=== PATIENT | female | born 1950 | race Caucasian/White ===

== ENCOUNTER 2018-02-10 13:19 | Outpatient (CLI) | payer MEDICARE, OTHER | END 2018-02-10 13:20 | disposition home or self-care (01) | LOC: BICULT 13:19 | PROVIDERS: ATTEND Family Medicine | DX: Z12.31 Encounter for screening mammogram for malignant neoplasm of breast (principal); R09.89 Other specified symptoms and signs involving the circulatory and respiratory systems; I65.23 Occlusion and stenosis of bilateral carotid arteries | CPT/HCPCS: 77063; 77067; 93880 ==

== ENCOUNTER 2019-03-13 14:30 | Outpatient (CLI) | payer MEDICARE ==
--- NOTE | 2019-03-13 15:33 | MMO ---
Bilateral MAMMO Bilat Screen [facility]. CLINICAL HISTORY: Patient is 68 years old and is seen for screening. The patient has no family history of breast cancer. The patient has no personal history of cancer. VIEWS: The views performed were: bilateral craniocaudal; bilateral craniocaudal with tomosynthesis; and bilateral mediolateral oblique with tomosynthesis. FILMS COMPARED: The present examination has been compared to prior imaging studies performed at [facility] on 09/15/2016, 01/25/2017 and 02/10/2018, and at [facility] on 11/13/2010. MAMMOGRAM FINDINGS: There are scattered fibroglandular densities. Benign calcifications are noted bilaterally. There are no suspicious masses, suspicious calcifications, or new areas of architectural distortion. IMPRESSION: THERE IS NO MAMMOGRAPHIC EVIDENCE OF MALIGNANCY. A ROUTINE FOLLOW-UP MAMMOGRAM IN 1 YEAR IS RECOMMENDED. THE RESULTS OF THIS EXAM WERE SENT TO THE PATIENT. ACR BI-RADS Category 2 - Benign finding MAMMOGRAPHY NOTE: 1. A negative mammogram report should not delay a biopsy if a dominant of clinically suspicious mass is present. 2. Approximately 10% to 15% of breast cancers are not detected by mammography. 3. Adenosis and dense breasts may obscure an underlying neoplasm. Reported by: Joie CHINCHILLA Electonically Signed: [id number]
--- NOTE | 2019-03-13 16:34 | BD ---
DEXA BONE MINERAL DENSITOMETRY STUDY: HISTORY: Age-related osteoporosis without current pathological fracture. FINDINGS: LUMBAR SPINE BMD (g/cm2) T-SCORE Z-SCORE L1 1.06 0.6 2.3 L2 0.983 -0.4 1.4 L3 1.119 0.3 2.3 L4 1.015 -0.4 1.6 L1-L4 1.044 0 1.8 RIGHT FEMORAL NECK 0.612 -2.1 -0.5 TOTAL FEMUR 0.928 -0.1 1.2 Bone mineral density from L1 to L4 on prior examination, obtained at [facility] [place] on 0 09/15/2016, was 1.127 g/cm2, corresponding to a young adult T-score of 0.7, with the bone mineral dens ity of the left femoral neck measuring 0.663 g/cm2, corresponding to a young adult T-score of -2.7. IMPRESSION: 1. Moderate osteopenia of the right femoral neck. 2. Normal bone mineralization of the lumbar spine. POS: BASIL
== END 2019-03-13 14:31 | disposition home or self-care (01) ==
LOC: BICMAMMO 14:30
PROVIDERS: ATTEND Family Medicine
DX: Z12.31 Encounter for screening mammogram for malignant neoplasm of breast (principal); M85.851 Other specified disorders of bone density and structure, right thigh; Z78.0 Asymptomatic menopausal state
CPT/HCPCS: 77063; 77067; 77080

== ENCOUNTER 2019-10-12 13:26 | Outpatient (CLI) | payer MEDICARE ==
[2019-10-12] MEDS ORDERED: Iopamidol-370 76% 500 ML 1 ML ONE (13:43)
--- NOTE | 2019-10-12 14:40 | CT ---
EXAM: CT Chest Abd Pelvis with and without IV contrast PROVIDED CLINICAL HISTORY: Malignant neoplasm of myometrium COMPARISON: None FINDINGS: Vascular calcification including coronary calcium is demonstrated. The heart, pericardium and great v essels demonstrate an otherwise unremarkable CT appearance. There is no evidence for thoracic lymph node enlargement. The airway appears patent and of normal caliber. No pleural fluid, pleural thickening or pneumothorax apparent. There is a sub-4 mm average axial dimension noncalcified left upper lobe pulmonary nodule (image 15 s eries 4). There is a sub-4 mm average axial dimension noncalcified right lower lobe pulmonary nodule (image 29 series 4). No additional nodules are evident. The liver, spleen, kidneys and adrenal glands appear unremarkable. There is fatty replacement of much of the pancreas. There is a small fat-containing umbilical hernia. There is an enlarged and heterogeneous appearance to the uterus compatible with the provided clinical history of uterine malignancy. No bowel dilatation, inflammatory fat stranding, free fluid or lymph node enlargement apparent. Vascular calcifications are noted. The osseous structures demonstrate no concerning lytic or blastic lesions. IMPRESSION: 1. Nonspecific sub-4 mm left upper and right lower lobe noncalcified pulmonary nodules. 2. Uterine findings compatible with the provided clinical history. 3. Chronic findings as above.
== END 2019-10-12 13:27 | disposition home or self-care (01) ==
LOC: BICCT 13:26
PROVIDERS: ATTEND Obstetrics & Gynecology Gynecologic Oncology
DX: C54.2 Malignant neoplasm of myometrium (principal); R91.8 Other nonspecific abnormal finding of lung field; I70.90 Unspecified atherosclerosis; K42.9 Umbilical hernia without obstruction or gangrene
CPT/HCPCS: 71250; 71260; 74177; 82565; Q9967

== ENCOUNTER 2020-08-02 15:16 | Emergency (ER) | payer MEDICARE ==
[2020-08-02] MEDS ORDERED: Ketorolac Tromethamine 30 MG/ML VIAL ONE (15:48)
--- NOTE | 2020-08-02 16:15 | RAD ---
XR Shoulder Rt 3 View STANDARD HISTORY: Fall, right shoulder pain FINDINGS: There is a comminuted fracture involving the right proximal humerus with mild displacement.
[2020-08-02] MEDS ORDERED: HYDROcodone/Acetaminophen 5/325 mg Tablet ONE (16:18)
== END 2020-08-02 16:47 | disposition home or self-care (01) ==
LOC: ERS 15:16
DX: S42.201A Unspecified fracture of upper end of right humerus, initial encounter for closed fracture (principal); I10 Essential (primary) hypertension; E78.5 Hyperlipidemia, unspecified; E78.00 Pure hypercholesterolemia, unspecified; W19.XXXA Unspecified fall, initial encounter; Y92.009 Unspecified place in unspecified non-institutional (private) residence as the place of occurrence of the external cause; Z79.82 Long term (current) use of aspirin; Z79.899 Other long term (current) drug therapy
CPT/HCPCS: 94760; 96372; J1885

== ENCOUNTER 2020-09-03 10:06 | Day surgery (SDC) | payer MEDICARE ==
[2020-09-03] MEDS ORDERED: Acetaminophen 325 MG TAB PO PRN (10:20)
[2020-09-03] MEDS ORDERED: Sodium Chloride 0.9% 20 ML ONE (11:51)
[2020-09-03 15:07] VITALS: TEMP 98
[2020-09-03 16:20] VITALS: BP 110/57
== END 2020-09-03 16:33 | disposition home or self-care (01) ==
LOC: ONC/OP 10:06
PROVIDERS: ATTEND Family Medicine
PROC: 30233N1 Transfusion of Nonautologous Red Blood Cells into Peripheral Vein, Percutaneous Approach (ICD-10-PCS; principal; 2020-09-03)
DX: D64.9 Anemia, unspecified (principal); Z88.0 Allergy status to penicillin; Z91.048 Other nonmedicinal substance allergy status
CPT/HCPCS: 36430; 86850; 86900; 86901; P9016

== ENCOUNTER 2020-09-05 15:32 | Outpatient (CLI) | payer MEDICARE ==
--- NOTE | 2020-09-05 16:08 | RAD ---
TWO VIEWS OF THE CHEST: 09/05/20 COMPARISON: 05/07/16, CT of the chest 10/12/19. HISTORY: Shortness of breath. FINDINGS: Two views of the chest shows a normal sized cardiomediastinal silhouette. There is a large mass in th e left apex measuring approximately 13.2 cm in greatest dimension. No destruction of the adjacent rib s is seen. No pleural effusion is seen. No right sided pulmonary masses are seen. Degenerative changes are seen in the spine. IMPRESSION: Left upper lobe pulmonary mass. A CT of the chest with contrast is recommended for further evaluation . POS: AH
== END 2020-09-05 15:33 | disposition home or self-care (01) ==
LOC: BICRAD 15:32
PROVIDERS: ATTEND Family Medicine
DX: R06.09 Other forms of dyspnea (principal); R91.8 Other nonspecific abnormal finding of lung field
CPT/HCPCS: 71046

== ENCOUNTER 2020-09-13 11:14 | Outpatient (CLI) | payer MEDICARE ==
[2020-09-13 22:15] LABS: SARS-CoV-2 PCR by NAA Not Detected (NotDetected)
== END 2020-09-13 11:15 | disposition home or self-care (01) ==
LOC: LABBT 11:14
PROVIDERS: ATTEND Family Medicine
DX: Z20.822 Contact with and (suspected) exposure to COVID-19 (principal)
CPT/HCPCS: U0003; U0005; 87635

== ENCOUNTER 2020-09-16 11:36 | Inpatient (IN) | payer MEDICARE ==
--- NOTE | 2020-09-16 12:28 | RAD ---
EXAM: Single view of the chest HISTORY: Lung mass COMPARISON: CT chest 09/10/2020 FINDINGS: Single view of the chest shows a normal sized cardiomediastinal silhouette. There is comple te opacification of the left thorax. This represents a combination of a large left upper lobe mass and atelectasis of the left lung. A pleural effusion may also be present. No significant midline shif t is seen. No acute osseous abnormality. IMPRESSION: Complete opacification of the left thorax as above.
[2020-09-16 12:39] LABS: Hemoglobin 8.1 g/dL (12.0-16.0); Mean Corpuscular HGB CONC 31.1 g/dL (32.0-36.0); Mean Corpuscular Hemoglobin 25.7 pg (27.0-31.0); Mean Corpuscular Volume 82.6 fL (78.0-98.0); Mean Platelet Volume 7.1 fL (7.4-10.4); Platelet Count 658 thou/uL (130-400); Red Blood Cell (RBC) Count 3.15 mill/uL (4.20-5.40); White Blood Cell (WBC) Count 27.5 thou/uL (4.8-10.8)
[2020-09-16 12:42] LABS: ALT (SGPT) Less than 7 U/L (8-55); AST (SGOT) 15 U/L (5-34); Albumin 2.9 g/dL (3.4-4.8); Alkaline Phosphatase 137 U/L (40-110); Anion Gap 18 mmol/L (10-20); BUN (Urea Nitrogen) 16 mg/dL (9.8-20.1); Bilirubin, Total 0.9 mg/dL (0.2-1.2); Calc. Creatinine Clearance 0 mL/min (70-130); Calcium 9.3 mg/dL (7.8-10.44); Carbon Dioxide 23 mmol/L (23-31); Chloride 93 mmol/L (98-107); Globulin 4.3 g/dL (2.4-3.5); Glucose 136 mg/dL (80-115); Potassium 4.2 mmol/L (3.5-5.1); Protein, Total 7.2 g/dL (5.8-8.1); Sodium 130 mmol/L (136-145)
[2020-09-16 12:44] LABS: Band 1 % (5-11); Hypochromia SLIGHT = 6-15 cells (100X) (0-5/hpf); Lymphocytes 2 % (21-51); MDiff Complete? YES; Monocytes 4 % (0-10); Neutrophil 92 % (42-75); Platelet Morphology Comment Appears Increased; Polychromasia SLIGHT = 2-3 cells (100X) (0-2/hpf); Reactive Lymphocytes 1 % (0-10)
--- NOTE | 2020-09-16 14:15 | PDOC.HHP ---
Hospitalist HPI shortness of breath History of Present Illness: This is a 70 year old female with past medical history of hypertension, anemia, humerus fracture, who presented to the ER with worsening shortness of breath. The patient states she started experiencing shortness of breath walking to the bathroom approximately one month ago. She fractured her right shoulder in July 2020 after tripping on a rug and had a CT scan of her chest on 09/10 for preoperative workup and incidentally found out she had a 14.5 x 9.3 cm mass. She was scheduled for a CT guided biopsy on 07/18, however this past weekend experienced progressively worsening shortness of breath. She went to see her PCP who sent her to the hospital for further workup. She denies fevers, chills, but has an occasional dry cough. She has intermittent chest pain when she is sitting that lasts a few seconds and resolves spontaneously. She has never smoked. The patient reports decreased appetite and has lost 5 pounds in the past two weeks unintentionally. She reports that she had increasing leg swelling after stopping her lisinopril-HCTZ and switching to metoprolol per cardiology recommendations, but her switched her back to lisinopril-HCTZ and her leg swelling has since improved. She was also discovered to be anemic during preoperative workup and had a recent blood transfusion for a hemoglobin of 7 on 09/02. She was scheduled for an EGD and colonoscopy and this was cancelled when she was found to have the lung mass. The patient is extremely frustrated with the all the bad news and barriers to her getting her shoulder repaired. ED Course: When the patient presented to the ER she had normal vitals and oxygen sat of 98% on 2L of oxygen. Chest Xray showed large left upper lobe mass and atelectasis of the left lung. There was complete opacification of the left thorax. Allergies/Adverse Reactions: Allergy/AdvReac Type Severity Reaction Status Date / Time adhesive Allergy Verified 11/06/19 12:29 Penicillins Allergy Verified 11/06/19 12:29 Home Medications: Medication Instructions Recorded Confirmed Type Lisinopril/Hydrochlorothiazide 2 tab PO DAILY 10/02/16 10/02/16 History [Lisinopril-Hctz 20-12.5 mg Tab] Multivitamin [Multivitamins] 1 cap PO DAILY 10/02/16 10/02/16 History Simvastatin 1 tab PO HS 10/02/16 10/02/16 History Past History: PMHx: Hypertension Sinus tachycardia PSHx: hysterectomy for uterine cancer FHx: pancreatic cancer in the brother. Uterine cancer in the mother Social:The patient has never smoked or drank Hospitalist HPI ROS Constitutional: denies: fever, chills Eyes: denies: pain, vision change ENT: denies: ear pain, ear discharge Gastrointestinal: reports: constipation. denies: nausea, vomiting, abdominal pain, diarrhea Genitourinary: denies: dysuria, frequency, incontinence Musculoskeletal: reports: shoulder pain (right shoulder pain) Skin: denies: rash, lesions Neurological: denies: weakness, numbness Hospitalist Exam General Appearance: NAD, awake alert Eye: PERRL, anicteric sclera ENT: normocephalic atraumatic, no oropharyngeal lesions Neck: supple, symmetric, no JVD Heart: RRR, no murmur, no gallops, no rubs Respiratory: no wheezes, no rales, no ronchi Respiratory - other findings: diminished breath sounds left mid lung to lower lobe Gastrointestinal: soft, non-tender, non-distended, normal bowel sounds Extremities: no cyanosis, no clubbing, 2+ LE edema Skin: normal turgor, no lesions, no rashes Neurological: cranial nerve grossly intact, normal sensation to touch, no weakness Musculoskeletal: normal tone, normal strength, no muscle wasting Psychiatric: normal affect, normal behavior, A&O x 3, oriented to person Hospitalist Results Result Diagrams: 09/16/20 12:00 09/16/20 12:00 Lab results: Laboratory Last Values WBC 27.5 thou/uL (4.8-10.8) H 09/16/20 12:00 RBC 3.15 mill/uL (4.20-5.40) L 09/16/20 12:00 Hgb 8.1 g/dL (12.0-16.0) L 09/16/20 12:00 Hct 26.0 % (36.0-47.0) L 09/16/20 12:00 MCV 82.6 fL (78.0-98.0) 09/16/20 12:00 MCH 25.7 pg (27.0-31.0) L 09/16/20 12:00 MCHC 31.1 g/dL (32.0-36.0) L 09/16/20 12:00 RDW 18.0 % (11.5-14.5) H 09/16/20 12:00 Plt Count 658 thou/uL (130-400) H 09/16/20 12:00 MPV 7.1 fL (7.4-10.4) L 09/16/20 12:00 Neutrophils % (Manual) 92 % (42-75) H 09/16/20 12:00 Band Neuts % (Manual) 1 % (5-11) L 09/16/20 12:00 Lymphocytes % (Manual) 2 % (21-51) L 09/16/20 12:00 Reactive Lymphs % 1 % (0-10) 09/16/20 12:00 Monocytes % (Manual) 4 % (0-10) 09/16/20 12:00 Lymphocytes # Not Reportable 09/16/20 12:00 Hypochromia SLIGHT = 6-15 cells (100X) (0-5/hpf) 09/16/20 12:00 Plt Morphology Comment Appears Increased H 09/16/20 12:00 Polychromasia SLIGHT = 2-3 cells (100X) (0-2/hpf) 09/16/20 12:00 Sodium 130 mmol/L (136-145) L 09/16/20 12:00 Potassium 4.2 mmol/L (3.5-5.1) 09/16/20 12:00 Chloride 93 mmol/L (98-107) L 09/16/20 12:00 Carbon Dioxide 23 mmol/L (23-31) 09/16/20 12:00 Anion Gap 18 mmol/L (10-20) 09/16/20 12:00 BUN 16 mg/dL (9.8-20.1) 09/16/20 12:00 Creatinine 0.81 mg/dL (0.6-1.1) 09/16/20 12:00 Estimated GFR (MDRD) 70 09/16/20 12:00 Glucose 136 mg/dL (80-115) H 09/16/20 12:00 Calcium 9.3 mg/dL (7.8-10.44) 09/16/20 12:00 Total Bilirubin 0.9 mg/dL (0.2-1.2) 09/16/20 12:00 AST 15 U/L (5-34) 09/16/20 12:00 ALT Less than 7 U/L (8-55) L 09/16/20 12:00 Alkaline Phosphatase 137 U/L (40-110) H 09/16/20 12:00 Troponin I Less than 0.010 ng/mL (< 0.028) 09/16/20 12:00 B-Natriuretic Peptide 29.3 pg/mL (0-100) 09/16/20 12:00 Serum Total Protein 7.2 g/dL (5.8-8.1) 09/16/20 12:00 Albumin 2.9 g/dL (3.4-4.8) L 09/16/20 12:00 Globulin 4.3 g/dL (2.4-3.5) H 09/16/20 12:00 Albumin/Globulin Ratio 0.7 g/dL (1.2-2.2) L 09/16/20 12:00 Hospitalist H&P A/P Plan: Chest Xray: complete opacification of the left thorax Chest CT : large pleural based mass involving left hemithorax, worrisome for malignant lesion. Solid nodule in middle lobe. This is a 70 year old female with past medical history of hypertension, sinus tachycardia, who presented to the ER with progressively worsening shortness of breath. She was recently discovered to have a large left lung mass. CXR shows complete opacification of the hemithorax. #Acute hypoxic respiratory failure secondary to large left lung mass with complete opacification of left lung #Possible left pleural effusion - chest X ray shows complete opacification of the left thorax . CT chest 5 days ago showed large pleural based mass. - discussed with pulmonary, will repeat CT guided biopsy with bacterial, fungal and AFB cultures - WBC of 27, hold antibiotics until after biopsy per pulmonary Anemia - Hb 8, will hold any blood thinners for now. Will check ferritin level. May eventually need GI workup as an outpatient Hypertension - on lisinopril-HCTZ as an outpatient Hyperlipidemia - continue simvastatin
[2020-09-16] MEDS ORDERED: Furosemide 20 MG/2 ML VIAL SLOW IVP SCH (15:00)
[2020-09-16] MEDS ORDERED: cefTRIAXone Sodium 1,000 MG in Syringe 0 ML IVPB SCH (15:00)
[2020-09-16] MEDS ORDERED: Azithromycin 500 MG in Sodium Chloride 0.9% 250 ML 250 ML IVPB SCH (15:00)
--- NOTE | 2020-09-16 15:21 | PDOC.EVN ---
Event Note - Event Note Event Note: Discussed with radiology, originally planned for CT guided biopsy on Wednesday. Radiology will try to see if they can do it tomorrow
--- NOTE | 2020-09-16 15:58 | CT ---
Exam: Chest CT without contrast COMPARISON: 09/10/2020. FINDINGS: Redemonstration of a heterogeneous mass occupying the majority of the left lung. There is increased c ollapse and decreased aeration of the lingula and left lower lobe. Interval development of a small left-sided pleural effusion. Stable appearance of the mediastinum. Redemonstration of a nodule in the right upper lobe. No changes in the subdiaphragmatic structures or osseous structures. IMPRESSION: 1. Decreased aeration of the left lung. There is left lower lobe consolidation which may represent pa ssive atelectasis secondary to a left pleural effusion. 2. Redemonstration of a bilobed large heterogeneous mass in the left upper lobe. Transcribed Date/Time: 09/16/2020 4:03 PM
[2020-09-16 18:05] VITALS: BMI 51.5
[2020-09-17 04:16] LABS: Anion Gap 17 mmol/L (10-20); BUN (Urea Nitrogen) 17 mg/dL (9.8-20.1); Calc. Creatinine Clearance 126 mL/min (70-130); Calcium 9.2 mg/dL (7.8-10.44); Carbon Dioxide 24 mmol/L (23-31); Chloride 93 mmol/L (98-107); Glucose 129 mg/dL (80-115); Potassium 3.8 mmol/L (3.5-5.1); Sodium 130 mmol/L (136-145)
[2020-09-17 04:49] LABS: Band 5 % (5-11); Hemoglobin 7.5 g/dL (12.0-16.0); MDiff Complete? YES; Mean Corpuscular HGB CONC 30.6 g/dL (32.0-36.0); Mean Corpuscular Hemoglobin 25.2 pg (27.0-31.0); Mean Corpuscular Volume 82.2 fL (78.0-98.0); Mean Platelet Volume 7.4 fL (7.4-10.4); Monocytes 4 % (0-10); Neutrophil 91 % (42-75); Platelet Count 569 thou/uL (130-400); Platelet Morphology Comment Appears Increased; RBC Distribution Width 18.4 % (11.5-14.5); Red Blood Cell (RBC) Count 2.98 mill/uL (4.20-5.40); Vacuoles SLIGHT; White Blood Cell (WBC) Count 24.8 thou/uL (4.8-10.8)
--- NOTE | 2020-09-17 08:21 | PRG ---
DATE OF SERVICE: 09/17/2020 Ms. Crespo is afebrile. Heart rate is 115, respiratory rates in the 20s, oximetry is 98% on 2 L, and blood pressure 108/56. I talked special procedures. She is on the schedule, reminded them to please get cultures in addition to specimens for pathology. We will continue to follow. After procedure, she could start on broad-spectrum antimicrobial therapy, avoiding a penicillin since she has an allergy to this. Job ID: [id number]
[2020-09-17] MEDS ORDERED: Midazolam HCl 2 mg/2 ml Vial ONE (08:28)
[2020-09-17] MEDS ORDERED: Sodium Bicarbonate 2.5 MEQ/5 ML VIAL ONE (08:28)
[2020-09-17] MEDS ORDERED: Fentanyl 100 MCG/2 ML VIAL ONE (08:28)
--- NOTE | 2020-09-17 11:49 | CT ---
Exam: CT-guided left lung biopsy HISTORY: Left lung mass. COMPARISON: None. FINDINGS: Successful CT-guided biopsy of a left lung mass. Total of three 18-gauge core biopsy sample s were obtained. Patient tolerated the procedure well. No immediate or postprocedure complications. Postprocedure CT demonstrated expected postbiopsy air in the left lung mass. No evidence of a pneumot horax. There is evidence of left-sided pleural effusion. TECHNIQUE: Consent obtained to perform a CT-guided biopsy of the left upper lobe. Patient was placed supine position on the CT gantry. Lesion was identified. Skin was prepped and draped in a sterile fashion. 1% lidocaine, buffered with sodium bicarbonate was used for local anesthesia. Under CT ashley nce, a 17-gauge metallic trocar was advanced into the mass. Through this trocar, total of three 18-gauge core biopsy samples were obtained. Lesional tissue is present. Patient tolerated the procedu re well. No immediate or postprocedure complications. IMPRESSION: Successful CT-guided left lung biopsy. IMPRESSION: Successful CT-guided biopsy. Final pathologic diagnosis pending. Transcribed Date/Time: 09/17/2020 1:45 PM
--- NOTE | 2020-09-17 11:52 | RAD ---
Exam: Upright inspiratory effort. Chest radiograph HISTORY: Status post left lung biopsy FINDINGS: Opacification of the left hemithorax is once again demonstrated. No pneumothorax. Subacute right dejan ral fracture is identified IMPRESSION: No pneumothorax
--- NOTE | 2020-09-17 11:53 | RAD ---
Exam: Portable upright inspiratory and expiratory chest radiograph HISTORY: Status post lung biopsy COMPARISON: 09/17/2020 at 9:57 AM FINDINGS: Portable upright inspiratory and expiratory chest radiographs do not identify any pneumotho rax. No significant change IMPRESSION: no pneumothorax
--- NOTE | 2020-09-17 12:33 | RAD ---
Exam: Upright inspiratory and expiratory chest radiograph HISTORY: Status post left lung biopsy FINDINGS: No evidence of pneumothorax. No significant interval change IMPRESSION: No pneumothorax
[2020-09-17] MEDS ORDERED: TYLENOL PO PRN (14:22)
[2020-09-17] MEDS ORDERED: COD PO PRN (14:22)
[2020-09-17] MEDS: Acetaminophen/Codeine 30-300mg Tablet PO PRN (16:13)
[2020-09-17] MEDS: Ondansetron PF 4 MG/2 ML Vial IVP PRN (16:14)
--- NOTE | 2020-09-17 18:26 | PDOC.HOSPP ---
- Subjective Encounter Date: 09/17/20 Encounter Time: 18:26 Subjective: F/u: lung mass THe patient states her biopsy went well. SHe has no complaints, has not ambulated yet. Shortness of breath is about the same. She has a mild cough, no chest pain - Objective Vital Signs & Weight: Vital Signs (12 hours) Temp Pulse Resp BP Pulse Ox 09/17/20 16:21 98.1 F 124 H 17 121/53 L 99 09/17/20 12:55 97.7 F 123 H 16 119/58 L 98 09/17/20 08:10 98.6 F 122 H 17 103/51 L 98 Weight Weight 238 lb 5.115 oz I&O: 09/16/20 09/17/20 09/18/20 06:59 06:59 06:59 Intake Total 240 800 Balance 240 800 Result Diagrams: 09/17/20 03:28 09/17/20 03:28 Hospitalist ROS - Review of Systems Constitutional: denies: fever, chills - Medication Medications: Active Medications Generic Name Dose Route Start Last Admin Trade Name Freq PRN Reason Stop Dose Admin Acetaminophen/Codeine Phosphate 1 tab 09/17/20 15:35 09/17/20 16:13 Acetaminophen/Codeine 30-300mg Tablet PO 1 tab Q4H PRN Administration Moderate Pain (4-6) Ondansetron HCl 4 mg 09/16/20 14:16 09/17/20 16:14 Ondansetron Pf 4 Mg/2 Ml Vial IVP 4 mg Q6H PRN Administration Nausea/Vomiting Hospitalist Exam Vitals: Vital Signs (12 hours) Temp Pulse Resp BP Pulse Ox 09/17/20 16:21 98.1 F 124 H 17 121/53 L 99 09/17/20 12:55 97.7 F 123 H 16 119/58 L 98 09/17/20 08:10 98.6 F 122 H 17 103/51 L 98 Weight Weight 238 lb 5.115 oz General Appearance: NAD, awake alert Eye: PERRL, anicteric sclera ENT: normocephalic atraumatic, no oropharyngeal lesions Neck: no JVD Heart: RRR, no murmur, no gallops, no rubs Respiratory - other findings: diminished breath sounds on left side, normal on right Gastrointestinal: soft, non-tender, non-distended, normal bowel sounds Extremities: no cyanosis, no clubbing, no edema Skin: normal turgor, no lesions, no rashes Neurological: cranial nerve grossly intact, normal sensation to touch, no weakness Musculoskeletal: normal tone, normal strength, no muscle wasting Psychiatric: normal affect, normal behavior, A&O x 3 Hosp A/P - Plan Chest Xray: complete opacification of the left thorax Chest CT : large pleural based mass involving left hemithorax, worrisome for malignant lesion. Solid nodule in middle lobe. This is a 70 year old female with past medical history of hypertension, sinus tachycardia, who presented to the ER with progressively worsening shortness of breath. She was recently discovered to have a large left lung mass. CXR shows complete opacification of the hemithorax. #Acute hypoxic respiratory failure secondary to large left lung mass with complete opacification of left lung #Left pleural effusion - chest X ray shows complete opacification of the left thorax . CT chest 5 days ago showed large pleural based mass. CT guided biopsy was done today. - Bacterial and fungal cultures and AFB culture ordered , per micro may not be enough specimen for fungal and AFB cultures - will start vancomycin and meropenem , WBC has improved to 27 Anemia of chronic disease - Hb 7.5, continue holding blood thinners . Ferritin 864 Hypertension - on lisinopril-HCTZ as an outpatient, will hold Hyperlipidemia - continue simvastatin Dispo: pending biopsy results
[2020-09-17] MEDS: Vancomycin 1 GM in Premix Bag 1 BAG IVPB SCH (21:19)
[2020-09-17] MEDS: MEROPENEM 1 GM/50 ML 1 GM in Premix Bag 1 BAG IVPB SCH (22:48)
[2020-09-18] MEDS: Acetaminophen/Codeine 30-300mg Tablet PO PRN ×2 (06:26→21:34)
[2020-09-18] MEDS: MEROPENEM 1 GM/50 ML 1 GM in Premix Bag 1 BAG IVPB SCH ×3 (06:50→21:34)
[2020-09-18] MEDS: Ondansetron PF 4 MG/2 ML Vial IVP PRN ×2 (06:50→18:52)
[2020-09-18] MEDS: Vancomycin 1 GM in Premix Bag 1 BAG IVPB SCH (09:18)
[2020-09-18 13:15] LABS: Hemoglobin 7.3 g/dL (12.0-16.0); Mean Corpuscular HGB CONC 30.8 g/dL (32.0-36.0); Mean Corpuscular Hemoglobin 25.8 pg (27.0-31.0); Mean Corpuscular Volume 83.8 fL (78.0-98.0); Platelet Count 624 thou/uL (130-400); RBC Distribution Width 18.1 % (11.5-14.5); Red Blood Cell (RBC) Count 2.81 mill/uL (4.20-5.40); White Blood Cell (WBC) Count 23.7 thou/uL (4.8-10.8)
[2020-09-18 14:01] LABS: ALT (SGPT) Less than 7 U/L (8-55); AST (SGOT) 11 U/L (5-34); Albumin 2.7 g/dL (3.4-4.8); Alkaline Phosphatase 124 U/L (40-110); Anion Gap 17 mmol/L (10-20); BUN (Urea Nitrogen) 23 mg/dL (9.8-20.1); Bilirubin, Total 0.5 mg/dL (0.2-1.2); Calc. Creatinine Clearance 67 mL/min (70-130); Carbon Dioxide 28 mmol/L (23-31); Chloride 91 mmol/L (98-107); Globulin 3.9 g/dL (2.4-3.5); Glucose 131 mg/dL (80-115); Potassium 3.9 mmol/L (3.5-5.1); Protein, Total 6.6 g/dL (5.8-8.1); Sodium 132 mmol/L (136-145)
--- NOTE | 2020-09-18 14:49 | PRG ---
DATE OF SERVICE: 09/18/2020 SUBJECTIVE: Radha Crespo successfully had her biopsy yesterday. OBJECTIVE: VITAL SIGNS: She is afebrile. Heart rate is 105, respiratory rate is 17, oximetry is 98, blood pressure 100/53. Cultures are negative so far. LUNGS: Remarkable for equal breath sounds. HEART: Regular rhythm. ABDOMEN: Soft. IMPRESSION: Lung mass, status post biopsy. I doubt this is a staphylococcal infectious process, so the vancomycin should be discontinued. We will await pathology that hopefully will be out tomorrow. Job ID: [id number]
--- NOTE | 2020-09-18 18:14 | PDOC.HOSPP ---
- Subjective Encounter Date: 09/18/20 Encounter Time: 18:09 Subjective: Ms. Crespo was seen today in follow-up of lung mass. She says she feels ok. denies chest pain. She is breathing better. - Objective Vital Signs & Weight: Vital Signs (12 hours) Temp Pulse Resp BP Pulse Ox 09/18/20 16:28 97.6 F 115 H 17 112/54 L 99 09/18/20 11:45 98.0 F 116 H 17 99/54 L 96 09/18/20 07:05 97.9 F 105 H 17 100/53 L 98 Weight Weight 240 lb 15.444 oz I&O: 09/17/20 09/18/20 09/19/20 06:59 06:59 06:59 Intake Total 240 1680 Balance 240 1680 Result Diagrams: 09/18/20 12:53 09/18/20 12:53 Hospitalist ROS - Medication Medications: Active Medications Generic Name Dose Route Start Last Admin Trade Name Freq PRN Reason Stop Dose Admin Acetaminophen/Codeine Phosphate 1 tab 09/17/20 15:35 09/18/20 06:26 Acetaminophen/Codeine 30-300mg Tablet PO 1 tab Q4H PRN Administration Moderate Pain (4-6) Meropenem 1 gm/ Device 50 mls @ 100 mls/hr 09/17/20 22:00 09/18/20 15:49 IVPB 50 mls Q8HR RORO Administration Vancomycin HCl 1 gm/ Device 200 mls @ 200 mls/hr 09/17/20 21:00 09/18/20 09:18 IVPB 200 mls Q12HR RORO Administration Ondansetron HCl 4 mg 09/16/20 14:16 09/18/20 06:50 Ondansetron Pf 4 Mg/2 Ml Vial IVP 4 mg Q6H PRN Administration Nausea/Vomiting Hospitalist Exam Vitals: Vital Signs (12 hours) Temp Pulse Resp BP Pulse Ox 09/18/20 16:28 97.6 F 115 H 17 112/54 L 99 09/18/20 11:45 98.0 F 116 H 17 99/54 L 96 09/18/20 07:05 97.9 F 105 H 17 100/53 L 98 Weight Weight 240 lb 15.444 oz General Appearance: NAD, awake alert Eye: PERRL, anicteric sclera Heart: RRR, no murmur, no gallops, no rubs, normal peripheral pulses Respiratory: CTAB (with decreased breath sounds in the left base) Gastrointestinal: soft, non-tender, non-distended, normal bowel sounds, no palpable masses, no hepatomegaly Extremities: no cyanosis, no edema Hosp A/P (1) Mass of left lung Code(s): R91.8 - OTHER NONSPECIFIC ABNORMAL FINDING OF LUNG FIELD Status: Acute (2) Fracture of humerus, proximal, right, closed Code(s): S42.201A - UNSP FRACTURE OF UPPER END OF RIGHT HUMERUS, INIT Status: Acute (3) Hypertension Code(s): I10 - ESSENTIAL (PRIMARY) HYPERTENSION Status: Chronic (4) Leukocytosis Code(s): D72.829 - ELEVATED WHITE BLOOD CELL COUNT, UNSPECIFIED Status: Acute - Plan * Left Lung mass- still awaiting pathology * Treated for presumed infection given the leukocytosis,and seemingly acute start of symptoms * Will discontinue Vancomycin * HTN-blood pressure is stable, but her heart rate is rapid- will re-start Metoprolol * Add Lovenox for DVT prophylaxis * Right humeral Head fracture- continue conservative management with sling for now
[2020-09-18] MEDS: Enoxaparin Sodium 40 MG/0.4 ML SYRINGE SC SCH (21:33)
[2020-09-18] MEDS: Atorvastatin Calcium 10 MG TAB PO SCH (21:34)
[2020-09-19] MEDS: MEROPENEM 1 GM/50 ML 1 GM in Premix Bag 1 BAG IVPB SCH (05:19)
[2020-09-19 08:36] LABS: Hemoglobin 7.5 g/dL (12.0-16.0); Mean Corpuscular HGB CONC 31.5 g/dL (32.0-36.0); Mean Corpuscular Hemoglobin 26.4 pg (27.0-31.0); Mean Corpuscular Volume 83.8 fL (78.0-98.0); Mean Platelet Volume 7.1 fL (7.4-10.4); Platelet Count 589 thou/uL (130-400); RBC Distribution Width 18.1 % (11.5-14.5); Red Blood Cell (RBC) Count 2.85 mill/uL (4.20-5.40)
[2020-09-19] MEDS: Multivit, Therapeutic 1 TAB PO SCH (08:52)
[2020-09-19 09:00] LABS: Anion Gap 17 mmol/L (10-20); BUN (Urea Nitrogen) 26 mg/dL (9.8-20.1); Calc. Creatinine Clearance 63 mL/min (70-130); Calcium 8.4 mg/dL (7.8-10.44); Carbon Dioxide 27 mmol/L (23-31); Chloride 93 mmol/L (98-107); Glucose 108 mg/dL (80-115); Potassium 4.5 mmol/L (3.5-5.1); Sodium 132 mmol/L (136-145)
[2020-09-19 09:02] LABS: Vancomycin, Trough 12.7 ug/mL
[2020-09-19 09:30] LABS: Band 9 % (5-11); Hypochromia SLIGHT = 6-15 cells (100X) (0-5/hpf); Lymphocytes 4 % (21-51); MDiff Complete? YES; Monocytes 11 % (0-10); Neutrophil 76 % (42-75); Platelet Morphology Comment Appears Increased; Polychromasia SLIGHT = 2-3 cells (100X) (0-2/hpf)
--- NOTE | 2020-09-19 09:58 | CT ---
Exam: CT-guided left lung biopsy HISTORY: Left lung mass. COMPARISON: None. FINDINGS: Successful CT-guided biopsy of a left lung mass. Total of three 18-gauge core biopsy sample s were obtained. Patient tolerated the procedure well. No immediate or postprocedure complications. Postprocedure CT demonstrated expected postbiopsy air in the left lung mass. No evidence of a pneumot horax. There is evidence of left-sided pleural effusion. TECHNIQUE: Consent obtained to perform a CT-guided biopsy of the left upper lobe. Patient was placed supine position on the CT gantry. Lesion was identified. Skin was prepped and draped in a sterile fashion. 1% lidocaine, buffered with sodium bicarbonate was used for local anesthesia. Under CT ashley nce, a 17-gauge metallic trocar was advanced into the mass. Through this trocar, total of three 18-gauge core biopsy samples were obtained. Lesional tissue is present. Patient tolerated the procedu re well. No immediate or postprocedure complications. IMPRESSION: Successful CT-guided left lung biopsy. IMPRESSION: Successful CT-guided biopsy. Final pathologic diagnosis pending. Transcribed Date/Time: 09/19/2020 9:58 AM
--- NOTE | 2020-09-19 10:40 | PRG ---
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 Pathology is trying to get records from [facility] in the [place] where her biopsies and her uterine malignancy were treated. She could go home with oxygen afterwards. She might benefit from a transfusion since her hemoglobin is 7.5. I met with her, informed her of the preliminary results, and answered all of her questions. Job ID: [id number]
--- NOTE | 2020-09-19 17:31 | PDOC.HOSPP ---
- Subjective Encounter Date: 09/19/20 Encounter Time: 17:29 Subjective: Ms. Crespo was seen today in follow-up of lung mass. She does not have any new complaints. She denies chest pain. - Objective Vital Signs & Weight: Vital Signs (12 hours) Temp Pulse Resp BP Pulse Ox 09/19/20 14:59 97.8 F 108 H 20 99/50 L 100 09/19/20 11:43 97.6 F 104 H 18 116/57 L 99 09/19/20 08:00 98.5 F 112 H 20 99/55 L 96 Weight Weight 240 lb 11.916 oz I&O: 09/18/20 09/19/20 09/20/20 06:59 06:59 06:59 Intake Total 1680 1220 Balance 1680 1220 Result Diagrams: 09/19/20 07:48 09/19/20 07:48 Hospitalist ROS - Medication Medications: Active Medications Generic Name Dose Route Start Last Admin Trade Name Freq PRN Reason Stop Dose Admin Acetaminophen/Codeine Phosphate 1 tab 09/17/20 15:35 09/18/20 21:34 Acetaminophen/Codeine 30-300mg Tablet PO 1 tab Q4H PRN Administration Moderate Pain (4-6) Atorvastatin Calcium 10 mg 09/18/20 21:00 09/18/20 21:34 Atorvastatin Calcium 10 Mg Tab PO 10 mg HS RORO Administration Enoxaparin Sodium 40 mg 09/18/20 21:00 09/18/20 21:33 Enoxaparin Sodium 40 Mg/0.4 Ml Syringe SC 40 mg 2100 RORO Administration Metoprolol Succinate 50 mg 09/19/20 09:00 09/19/20 08:52 Metoprolol Succinate Xl 50 Mg Tab PO 50 mg DAILY RORO Administration Multivitamins 1 tab 09/19/20 09:00 09/19/20 08:52 Multivit, Therapeutic 1 Tab PO 1 tab DAILY RORO Administration Ondansetron HCl 4 mg 09/16/20 14:16 09/18/20 18:52 Ondansetron Pf 4 Mg/2 Ml Vial IVP 4 mg Q6H PRN Administration Nausea/Vomiting Hospitalist Exam Vitals: Vital Signs (12 hours) Temp Pulse Resp BP Pulse Ox 09/19/20 14:59 97.8 F 108 H 20 99/50 L 100 02/04/21 11:43 97.6 F 104 H 18 116/57 L 99 09/19/20 08:00 98.5 F 112 H 20 99/55 L 96 Weight Weight 240 lb 11.916 oz General Appearance: NAD, awake alert Eye: PERRL, anicteric sclera Heart: RRR, no murmur, no gallops, no rubs, normal peripheral pulses Respiratory: CTAB, no wheezes, no rales, no ronchi, normal chest expansion, no tachypnea Gastrointestinal: soft, non-tender, non-distended, normal bowel sounds, no palpable masses, no hepatomegaly, no splenomegaly Extremities: no cyanosis, no edema Hosp A/P (1) Mass of left lung Code(s): R91.8 - OTHER NONSPECIFIC ABNORMAL FINDING OF LUNG FIELD Status: Acute (2) Fracture of humerus, proximal, right, closed Code(s): S42.201A - UNSP FRACTURE OF UPPER END OF RIGHT HUMERUS, INIT Status: Acute (3) Hypertension Code(s): I10 - ESSENTIAL (PRIMARY) HYPERTENSION Status: Chronic (4) Leukocytosis Code(s): D72.829 - ELEVATED WHITE BLOOD CELL COUNT, UNSPECIFIED Status: Acute - Plan * Left Lung mass- pathology findings are back- 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 * The findings were discussed with the patient and her . * Meropenem has been discontinued * HTN-blood pressure is low normal * Right humeral Head fracture- continue conservative management with sling for now * Will consult Oncology- as the patient would like to receive treatment locally * Records from [facility] have been requested
[2020-09-19] MEDS: Atorvastatin Calcium 10 MG TAB PO SCH (21:31)
[2020-09-19] MEDS: Enoxaparin Sodium 40 MG/0.4 ML SYRINGE SC SCH (21:31)
[2020-09-19] MEDS: Famotidine 20 MG TAB PO SCH (21:31)
[2020-09-20] MEDS: Acetaminophen/Codeine 30-300mg Tablet PO PRN ×2 (03:30→15:03)
[2020-09-20] MEDS: Ondansetron PF 4 MG/2 ML Vial IVP PRN ×2 (03:30→15:05)
[2020-09-20] MEDS: Famotidine 20 MG TAB PO SCH ×2 (09:12→21:31)
[2020-09-20] MEDS: Multivit, Therapeutic 1 TAB PO SCH (09:15)
--- NOTE | 2020-09-20 13:09 | PDOC.HOSPP ---
- Subjective Encounter Date: 09/20/20 Encounter Time: 13:08 Subjective: Ms. Crespo was seen today in follow-up of Lung mass. She notes some pain and discomfort in the right leg. She says she is breathing ok. - Objective Vital Signs & Weight: Vital Signs (12 hours) Temp Pulse Resp BP BP Pulse Ox 09/20/20 12:00 97.9 F 95 13 94/46 L 98 09/20/20 08:00 98.7 F 108 H 18 97/43 L 99 09/20/20 03:46 98.5 F 102 H 20 117/54 L 98 Weight Weight 240 lb 10.026 oz I&O: 09/19/20 09/20/20 09/21/20 06:59 06:59 06:59 Intake Total 1220 240 240 Balance 1220 240 240 Result Diagrams: 09/19/20 07:48 09/19/20 07:48 Hospitalist ROS - Medication Medications: Active Medications Generic Name Dose Route Start Last Admin Trade Name Freq PRN Reason Stop Dose Admin Acetaminophen/Codeine Phosphate 1 tab 09/17/20 15:35 09/20/20 03:30 Acetaminophen/Codeine 30-300mg Tablet PO 1 tab Q4H PRN Administration Moderate Pain (4-6) Atorvastatin Calcium 10 mg 09/18/20 21:00 09/19/20 21:31 Atorvastatin Calcium 10 Mg Tab PO 10 mg HS RORO Administration Enoxaparin Sodium 40 mg 09/18/20 21:00 09/19/20 21:31 Enoxaparin Sodium 40 Mg/0.4 Ml Syringe SC 40 mg 2100 RORO Administration Famotidine 20 mg 09/19/20 21:00 09/20/20 09:12 Famotidine 20 Mg Tab PO 20 mg BID RORO Administration Metoprolol Succinate 50 mg 09/19/20 09:00 09/20/20 09:15 Metoprolol Succinate Xl 50 Mg Tab PO 50 mg DAILY RORO Administration Multivitamins 1 tab 09/19/20 09:00 09/20/20 09:15 Multivit, Therapeutic 1 Tab PO 1 tab DAILY RORO Administration Ondansetron HCl 4 mg 09/16/20 14:16 09/20/20 03:30 Ondansetron Pf 4 Mg/2 Ml Vial IVP 4 mg Q6H PRN Administration Nausea/Vomiting Hospitalist Exam Vitals: Vital Signs (12 hours) Temp Pulse Resp BP BP Pulse Ox 09/20/20 12:00 97.9 F 95 13 94/46 L 98 09/20/20 08:00 98.7 F 108 H 18 97/43 L 99 09/20/20 03:46 98.5 F 102 H 20 117/54 L 98 Weight Weight 240 lb 10.026 oz General Appearance: NAD, awake alert Eye: PERRL, anicteric sclera Heart: RRR, no murmur, no gallops, no rubs, normal peripheral pulses Respiratory: no wheezes (but decreased breath sounds at the bases) Gastrointestinal: soft, non-tender, non-distended, normal bowel sounds, no palp able masses, no hepatomegaly Extremities: no cyanosis (+ edema in the right lower extemity), 2+ LE edema Hosp A/P (1) Mass of left lung Code(s): R91.8 - OTHER NONSPECIFIC ABNORMAL FINDING OF LUNG FIELD Status: Acute (2) Fracture of humerus, proximal, right, closed Code(s): S42.201A - UNSP FRACTURE OF UPPER END OF RIGHT HUMERUS, INIT Status: Acute (3) Hypertension Code(s): I10 - ESSENTIAL (PRIMARY) HYPERTENSION Status: Chronic (4) Leukocytosis Code(s): D72.829 - ELEVATED WHITE BLOOD CELL COUNT, UNSPECIFIED Status: Acute - Plan * Left Lung mass- pathology is consistent with Leiomyosarcoma. * She continues to have some hypoxemia- will order home oxygen * Right leg swelling * HTN-blood pressure is low normal * Right humeral Head fracture- continue conservative management with sling for now * Oncology Consult * Awaiting records from [facility].
--- NOTE | 2020-09-20 17:51 | ULT ---
VENOUS DOPPLER ULTRASOUND OF THE RIGHT LOWER EXTREMITY: 09/20/20 HISTORY: Right lower extremity edema and pain. TECHNIQUE: Abbott scale, color flow and spectral Doppler imaging of the deep venous system of the with lower extre mity was performed. FINDINGS: There is good flow, compression and augmentation noted in the right common femoral, femoral, deep fem oral, popliteal, posterior tibial and greater saphenous veins. IMPRESSION: No evidence of DVT in the right lower extremity. POS: [facility]
[2020-09-20] MEDS: Atorvastatin Calcium 10 MG TAB PO SCH (21:31)
[2020-09-20] MEDS: Enoxaparin Sodium 40 MG/0.4 ML SYRINGE SC SCH (21:31)
--- NOTE | 2020-09-20 23:17 | CON ---
DATE OF CONSULTATION: REASON FOR CONSULT: Leiomyosarcoma. HISTORY OF PRESENT ILLNESS: Ms. Crespo is a pleasant 70-year-old female with a past medical history of uterine cancer, status post surgery and radiation, who fell in July and injured her right shoulder. She underwent a CT scan for preoperative workup. There was a pleural-based mass in the upper left hemothorax measuring 14.5 x 9.3 cm. There were no erosive or destructive changes to the adjacent bony structures. It was causing narrowing of the left upper airway and artery. She underwent a CT-guided biopsy. Pathology returned a sarcoma consistent with metastatic leiomyosarcoma. This is consistent with her uterine malignancy from early 2019. The patient is resting comfortably. She is O2 dependent at this time. She has no chest pain. She has been up and out of her bed with no shortness of breath. PAST MEDICAL HISTORY: 1. Uterine sarcoma, status post hysterectomy and radiation. 2. Hypertension. 3. Obesity. PAST SURGICAL HISTORY: Hysterectomy. ALLERGIES: PENICILLIN. HOME MEDICATIONS: 1. Lisinopril and hydrochlorothiazide. 2. Multivitamin. 3. Simvastatin. FAMILY HISTORY: Brother had pancreatic cancer. Mother had uterine cancer. SOCIAL HISTORY: , lives with her spouse. No alcohol, tobacco, or illicit drug use. REVIEW OF SYSTEMS: 12-point review of systems is negative except for noted in HPI. PHYSICAL EXAMINATION: VITAL SIGNS: Temperature 98.3, pulse is 106, respiratory rate 20, BP is 124/51. She is 99% on 2 L. GENERAL: Well-developed, well-nourished female, in no acute distress. HEENT: Normocephalic, atraumatic. Pupils are equal and reactive to light. NECK: Supple. CV: Regular rate and rhythm. LUNGS: Diminished. ABDOMEN: Obese. Bowel sounds are positive. NEUROLOGIC: Nonfocal. PERTINENT LABORATORY DATA AND X-RAYS: WBCs are 23, hemoglobin 7.5, hematocrit 23.9, platelet count 589,000, 76% neutrophils, 9% bands, 4% lymphocytes, PT is 15.6, INR is 1.2, and PTT is 37.3. Sodium 132, potassium 4.5, chloride 93, CO2 is 26, BUN is 1.47, calcium 8.4, bilirubin 0.5, AST is 11, ALT is less than 7, alkaline phosphatase is 124. Serum total protein 6.6, albumin 2.7, globulin 3.9. COVID PCR negative. ASSESSMENT: 1. Metastatic uterine leiomyosarcoma and left hemothorax. 2. History of uterine cancer, status post hysterectomy and radiation. DISCUSSION: The patient unfortunately has significant tumor burden over the left hemothorax. She is currently oxygen dependent and options include chemotherapy versus hospice. She is interested in seeking treatment. Case is discussed with Dr. Quintero. We will send a referral to the [facility] for their opinion and happy to assist in any way we can. I discussed this with both patient and . Thank you for the consult. Job ID: [id number]
[2020-09-21] MEDS ORDERED: Sodium Chloride 0.9% 250 ML IV SCH (05:00)
[2020-09-21] MEDS: Acetaminophen/Codeine 30-300mg Tablet PO PRN (09:04)
[2020-09-21] MEDS: Multivit, Therapeutic 1 TAB PO SCH (09:05)
[2020-09-21] MEDS: Famotidine 20 MG TAB PO SCH ×2 (09:05→21:31)
--- NOTE | 2020-09-21 12:01 | PDOC.MOPN ---
Interval History: SOB stable. she is ready to go home. no pain - Vital Signs Vital Signs: Vital Signs (12 hours) Temp Pulse Resp BP BP Pulse Ox 09/21/20 08:00 98.0 F 104 H 18 111/60 98 09/21/20 04:00 98.0 F 101 H 23 H 108/52 L 98 09/21/20 00:00 96 118/54 L Weight Weight 241 lb 2.971 oz - Physical Exam General: Alert, Cooperative HEENT: Atraumatic Lungs: Other (tachypneic and SOB with talking. mild decreased BS throughout) Cardiovascular: Regular rate Abdomen: Normal bowel sounds Extremities: No edema Skin: No rashes Neurological: Normal gait, Normal speech - Labs Result Diagrams: 09/19/20 07:48 09/19/20 07:48 A/P - Problem (1) Leiomyosarcoma of chest wall Current Visit: Yes Code(s): C49.3 - MALIGNANT NEOPLASM OF CONNECTIVE AND SOFT TISSUE OF THORAX Status: Acute (2) Fracture of humerus, proximal, right, closed Current Visit: Yes Code(s): S42.201A - UNSP FRACTURE OF UPPER END OF RIGHT HUMERUS, INIT Status: Acute (3) Hypertension Current Visit: Yes Code(s): I10 - ESSENTIAL (PRIMARY) HYPERTENSION Status: Chronic - Plan Plan: 1. home with home O2 when she is ready, she appears ready now 2. recheck cbc 3. f/u in office next week 4. discuss case with sharepoint administrator onc
[2020-09-21 12:19] LABS: Hemoglobin 6.7 g/dL (12.0-16.0); Mean Corpuscular Volume 83.2 fL (78.0-98.0); Mean Platelet Volume 6.8 fL (7.4-10.4); Platelet Count 563 thou/uL (130-400); RBC Distribution Width 17.9 % (11.5-14.5); Red Blood Cell (RBC) Count 2.69 mill/uL (4.20-5.40); White Blood Cell (WBC) Count 23.1 thou/uL (4.8-10.8)
--- NOTE | 2020-09-21 20:13 | PDOC.HOSPP ---
- Subjective Subjective: feels well and eager to go home. - Objective Vital Signs & Weight: Vital Signs (12 hours) Temp Pulse Pulse Resp BP BP Pulse Ox 09/21/20 19:34 98 F 103 H 20 116/56 L 09/21/20 19:29 98.3 F 108 H 20 137/60 100 09/21/20 16:00 98.4 F 98 18 114/52 L 98 09/21/20 12:00 97.9 F 97 18 111/55 L 98 Weight Weight 241 lb 2.971 oz I&O: 09/20/20 09/21/20 09/22/20 06:59 06:59 06:59 Intake Total 240 530 360 Balance 240 530 360 Result Diagrams: 09/21/20 12:11 09/19/20 07:48 Hospitalist ROS - Medication Medications: Active Medications Generic Name Dose Route Start Last Admin Trade Name Freq PRN Reason Stop Dose Admin Acetaminophen/Codeine Phosphate 1 tab 09/17/20 15:35 09/21/20 09:04 Acetaminophen/Codeine 30-300mg Tablet PO 1 tab Q4H PRN Administration Moderate Pain (4-6) Atorvastatin Calcium 10 mg 09/18/20 21:00 09/20/20 21:31 Atorvastatin Calcium 10 Mg Tab PO 10 mg HS RORO Administration Enoxaparin Sodium 40 mg 09/18/20 21:00 09/20/20 21:31 Enoxaparin Sodium 40 Mg/0.4 Ml Syringe SC 40 mg 2100 RORO Administration Famotidine 20 mg 09/19/20 21:00 09/21/20 09:05 Famotidine 20 Mg Tab PO 20 mg BID RORO Administration Metoprolol Succinate 50 mg 09/19/20 09:00 09/21/20 09:05 Metoprolol Succinate Xl 50 Mg Tab PO 50 mg DAILY RORO Administration Multivitamins 1 tab 09/19/20 09:00 09/21/20 09:05 Multivit, Therapeutic 1 Tab PO 1 tab DAILY RORO Administration Ondansetron HCl 4 mg 09/16/20 14:16 09/20/20 15:05 Ondansetron Pf 4 Mg/2 Ml Vial IVP 4 mg Q6H PRN Administration Nausea/Vomiting Hospitalist Exam Vitals: Vital Signs (12 hours) Temp Pulse Pulse Resp BP BP Pulse Ox 09/21/20 19:34 98 F 103 H 20 116/56 L 02/06/21 19:29 98.3 F 108 H 20 137/60 100 09/21/20 16:00 98.4 F 98 18 114/52 L 98 09/21/20 12:00 97.9 F 97 18 111/55 L 98 Weight Weight 241 lb 2.971 oz General Appearance: NAD Eye: PERRL ENT: normocephalic atraumatic Neck: supple, symmetric Heart: RRR, no murmur, no gallops Respiratory: CTAB, no wheezes, no rales Gastrointestinal: soft, non-tender, non-distended Hosp A/P (1) Anemia Code(s): D64.9 - ANEMIA, UNSPECIFIED Status: Acute (2) Leiomyosarcoma of chest wall Code(s): C49.3 - MALIGNANT NEOPLASM OF CONNECTIVE AND SOFT TISSUE OF THORAX Status: Acute (3) Leukocytosis Code(s): D72.829 - ELEVATED WHITE BLOOD CELL COUNT, UNSPECIFIED Status: Acute (4) Mass of left lung Code(s): R91.8 - OTHER NONSPECIFIC ABNORMAL FINDING OF LUNG FIELD Status: Acute (5) Hypertension Code(s): I10 - ESSENTIAL (PRIMARY) HYPERTENSION Status: Chronic - Plan plan for today 09/21 she was ready to go home but her hgb came back lower then 7.5 mg/dl, as per Hem it was recommended for her to be transfused, her discharge will be delayed till tomorrow after she finishes her transfusion. I will recheck her hgb in am.
--- NOTE | 2020-09-21 20:37 | EKG ---
Test Reason : Blood Pressure : / mmHG Vent. Rate : 122 BPM Atrial Rate : 122 BPM P-R Int : 128 ms QRS Dur : 090 ms QT Int : 312 ms P-R-T Axes : 035 -10 110 degrees QTc Int : 444 ms Sinus tachycardia Nonspecific T wave abnormality Abnormal ECG Confirmed by ILANA LINCOLN, CRISTAL ([id number]), editorial manager MOHAN GUPTA ([id number]) on 09/21/2020 8:37:20 PM Referred By: Confirmed By:CRISTAL PRECIADO MD
[2020-09-21] MEDS: Atorvastatin Calcium 10 MG TAB PO SCH (21:30)
[2020-09-21] MEDS: Enoxaparin Sodium 40 MG/0.4 ML SYRINGE SC SCH (21:30)
[2020-09-22] MEDS: Acetaminophen/Codeine 30-300mg Tablet PO PRN ×2 (01:35→06:48)
[2020-09-22] MEDS: Ondansetron PF 4 MG/2 ML Vial IVP PRN (01:43)
[2020-09-22 05:12] LABS: Eosinophils 1 % (0-10); Hemoglobin 7.9 g/dL (12.0-16.0); Lymphocytes 1 % (21-51); MDiff Complete? YES; Mean Corpuscular HGB CONC 31.2 g/dL (32.0-36.0); Mean Corpuscular Hemoglobin 26.6 pg (27.0-31.0); Mean Corpuscular Volume 85.4 fL (78.0-98.0); Mean Platelet Volume 6.8 fL (7.4-10.4); Monocytes 3 % (0-10); Myelocyte 1 % (0-0); Neutrophil 94 % (42-75); Platelet Count 526 thou/uL (130-400); Platelet Morphology Comment Appears Increased; RBC Distribution Width 17.9 % (11.5-14.5); Red Blood Cell (RBC) Count 2.95 mill/uL (4.20-5.40); White Blood Cell (WBC) Count 21.5 thou/uL (4.8-10.8)
[2020-09-22] MEDS: Famotidine 20 MG TAB PO SCH (08:48)
[2020-09-22] MEDS: Multivit, Therapeutic 1 TAB PO SCH (08:48)
--- NOTE | 2020-09-22 12:24 | PDOC.DS.DS ---
Provider Date of Admission: 09/16/20 14:18 Date of Discharge: 09/22/20 Admitting Provider: Sierra Orozco MD Consultations: None (Hem-onc) Primary Care Physician: Sarah Murrieta MD Course Hospital Course: This is a 70 year old female with past medical history of hypertension, anemia, humerus fracture, who presented to the ER with worsening shortness of breath. The patient states she started experiencing shortness of breath walking to the bathroom approximately one month ago. She fractured her right shoulder in July 2020 after tripping on a rug and had a CT scan of her chest on 09/10 for preoperative workup and incidentally found out she had a 14.5 x 9.3 cm mass. She was scheduled for a CT guided biopsy on 07/18, however this past weekend experienced progressively worsening shortness of breath. She went to see her PCP who sent her to the hospital for further workup. She denies fevers, chills, but has an occasional dry cough. She has intermittent chest pain when she is sitting that lasts a few seconds and resolves spontaneously. She has never smoked. The patient reports decreased appetite and has lost 5 pounds in the past two weeks unintentionally. She reports that she had increasing leg swelling after stopping her lisinopril-HCTZ and switching to metoprolol per cardiology re commendations, but her switched her back to lisinopril-HCTZ and her leg swelling has since improved. She was also discovered to be anemic during preoperative workup and had a recent blood transfusion for a hemoglobin of 7 on 09/02. She was scheduled for an EGD and colonoscopy and this was cancelled when she was found to have the lung mass. The patient is extremely frustrated with the all the bad news and barriers to her getting her shoulder repaired. during her stay she underwent a biopsy of her lung mass, an infectious was doubtful, her ATB were stopped, the biopsy indicated a Leiomyosarcoma, she will follow-up with Oncology as an outpatient for further planning. A doppler of the Lower extremities was neg for DVT. She remained hypoxemic that is why she will be discharged on home oxygen. Her BP was soft, all her antihypertensive agents were stopped, but she had some tachycardia so Toprol was resumed. I instructed her to stop her SYLVESTER-diuretic combo, and keep with Toprol. Her hgb dropped again, we transfused her with one PRBC. She is eager to go home, so we will discharge her today. Resuscitation Status: 09/16/20 14:16 Resuscitation Status Routine Resuscitation Status: FULL: Full Resuscitation Lab Results: 09/22/20 04:30 09/19/20 07:48 Abnormal Lab Results - Last 48 hrs 09/21/20 12:11: WBC 23.1 H, RBC 2.69 L, Hgb 6.7 L, Hct 22.4 L, MCH 25.0 L, MCHC 30.0 L, RDW 17.9 H, Plt Count 563 H, MPV 6.8 L 09/21/20 17:21: Crossmatch See Detail 09/22/20 04:30: WBC 21.5 H, RBC 2.95 L, Hgb 7.9 L, Hct 25.2 L, MCH 26.6 L, MCHC 31.2 L, RDW 17.9 H, Plt Count 526 H, MPV 6.8 L, Neutrophils % (Manual) 94 H, Lymphocytes % (Manual) 1 L, Myelocytes % 1 H, Plt Morphology Comment Appears Increased H Microbiology - Entire Visit 09/17/20 Unknown Lung - Tissue Bacterial Culture - Final 09/17/20 Unknown Lung - Tissue Anaerobic Culture - Final NO ANAEROBES ISOLATED IN 5 DAYS Vitals: Vital Signs (12 hours) Temp Pulse Resp BP Pulse Ox 09/22/20 08:55 97.6 F 96 14 108/51 L 98 09/22/20 05:28 95 09/22/20 03:56 98.2 F 95 20 113/55 L 90 L Weight Weight 241 lb 2.971 oz Physical Exam: The patient was seen and examined on the day of discharge. General Appearance: NAD, awake alert Eye: PERRL, anicteric sclera ENT: normocephalic atraumatic, no oropharyngeal lesions Neck: supple, symmetric, no JVD Respiratory: CTAB, no wheezes, no rales Cardiovascular: RRR, no murmur, no gallops Gastrointestinal: soft, non-tender Extremities: no cyanosis Skin: normal turgor Problem (1) Anemia Code(s): D64.9 - ANEMIA, UNSPECIFIED Status: Acute (2) Leiomyosarcoma of chest wall Code(s): C49.3 - MALIGNANT NEOPLASM OF CONNECTIVE AND SOFT TISSUE OF THORAX Status: Acute (3) Leukocytosis Code(s): D72.829 - ELEVATED WHITE BLOOD CELL COUNT, UNSPECIFIED Status: Acute (4) Mass of left lung Code(s): R91.8 - OTHER NONSPECIFIC ABNORMAL FINDING OF LUNG FIELD Status: Acute (5) Hypertension Code(s): I10 - ESSENTIAL (PRIMARY) HYPERTENSION Status: Chronic Time Spent in discharge related activities (mins): 40 Plan Home Medications: Medication Instructions Recorded Confirmed Type Multivitamin [Multivitamins] 1 cap PO DAILY 10/02/16 09/16/20 History Simvastatin 1 tab PO HS 10/02/16 09/16/20 History Acetaminophen With Codeine 1 tab PO Q6HR PRN 09/16/20 09/16/20 History [Acetaminophen/Codeine #4] Metoprolol Succinate 50 mg PO DAILY 09/16/20 09/16/20 History Allergies: adhesive Allergy (Verified 11/06/19 12:29) Penicillins Allergy (Verified 11/06/19 12:29) Referrals: Sarah Murrieta MD [Primary Care Provider] - Laine Quintero MD [Active] - 7 Days (Follow-up in office next week) Disposition: HOME Quality CORE MEASURES:: N/A
[2020-09-22 13:16] VITALS: BP 108/56; TEMP 97.7
== END 2020-09-22 14:20 | disposition home or self-care (01) | DRG 180 ==
LOC: ERS 11:36 → 2NO 14:18
PROVIDERS: ADMIT Internal Medicine; ATTEND Internal Medicine
PROC: 0BBG3ZX Excision of Left Upper Lung Lobe, Percutaneous Approach, Diagnostic (ICD-10-PCS; principal; 2020-09-17)
PROC: 30233N1 Transfusion of Nonautologous Red Blood Cells into Peripheral Vein, Percutaneous Approach (ICD-10-PCS; 2020-09-21)
DX: C78.02 Secondary malignant neoplasm of left lung (principal); J96.01 Acute respiratory failure with hypoxia; J94.2 Hemothorax; Z68.43 Body mass index [BMI] 50.0-59.9, adult; Z20.822 Contact with and (suspected) exposure to COVID-19; I10 Essential (primary) hypertension; D64.9 Anemia, unspecified; E78.5 Hyperlipidemia, unspecified; D72.829 Elevated white blood cell count, unspecified; E78.00 Pure hypercholesterolemia, unspecified; W19.XXXD Unspecified fall, subsequent encounter; E66.9 Obesity, unspecified; Z90.710 Acquired absence of both cervix and uterus; Z88.0 Allergy status to penicillin; Z91.048 Other nonmedicinal substance allergy status; Z79.899 Other long term (current) drug therapy; S42.201D Unspecified fracture of upper end of right humerus, subsequent encounter for fracture with routine healing; Z85.42 Personal history of malignant neoplasm of other parts of uterus
CPT/HCPCS: 32408; 36415; 36416; 36430; 71045; 71250; 77002; 80048; 80053; 80202; 82728; 83880; 84484; 85025; 85027; 86850; 86900; 86901; 87070; 87205; 88305; 88313; 88333; 88334; 88341; 88342; 93005; 99213; G0463; J1650; J2185; J2250; J2405; J3010; J3370; P9016

== ENCOUNTER 2020-10-04 12:16 | Day surgery (SDC) | payer MEDICARE ==
[2020-10-04] MEDS ORDERED: Sodium Chloride 0.9% 20 ML ONE (12:50)
[2020-10-04] MEDS ORDERED: Acetaminophen 500 MG TAB PO SCH (13:00)
[2020-10-04] MEDS ORDERED: diphenhydrAMINE 25 MG CAP PO SCH (13:00)
[2020-10-04 19:27] VITALS: BP 105/52; TEMP 97.4
== END 2020-10-04 19:27 | disposition home or self-care (01) ==
LOC: ONC/OP 12:16
PROVIDERS: ATTEND Internal Medicine Hematology & Oncology
PROC: 30233N1 Transfusion of Nonautologous Red Blood Cells into Peripheral Vein, Percutaneous Approach (ICD-10-PCS; principal; 2020-10-04)
DX: D64.9 Anemia, unspecified (principal); Z88.0 Allergy status to penicillin; Z91.048 Other nonmedicinal substance allergy status
CPT/HCPCS: 36430; 86850; 86900; 86901; P9016; Q0163

== ENCOUNTER 2020-10-07 09:10 | Inpatient (IN) | payer MEDICARE ==
[2020-10-07 10:12] LABS: INR-International Normal Ratio 1.3; Prothrombin Time 16.2 sec (12.0-14.7)
[2020-10-07 10:14] LABS: Hemoglobin 9.5 g/dL (12.0-16.0); Mean Corpuscular HGB CONC 30.6 g/dL (32.0-36.0); Mean Corpuscular Hemoglobin 27.8 pg (27.0-31.0); Mean Corpuscular Volume 90.7 fL (78.0-98.0); Mean Platelet Volume 7.3 fL (7.4-10.4); Platelet Count 568 thou/uL (130-400); RBC Distribution Width 19.4 % (11.5-14.5); Red Blood Cell (RBC) Count 3.41 mill/uL (4.20-5.40); White Blood Cell (WBC) Count 38.9 thou/uL (4.8-10.8)
[2020-10-07 10:20] LABS: ALT (SGPT) 12 U/L (8-55); AST (SGOT) 22 U/L (5-34); Alkaline Phosphatase 158 U/L (40-110); Anion Gap 20 mmol/L (10-20); BUN (Urea Nitrogen) 73 mg/dL (9.8-20.1); CK (CPK) 13 U/L (29-168); Calc. Creatinine Clearance 0 mL/min (70-130); Calcium 10.8 mg/dL (7.8-10.44); Carbon Dioxide 31 mmol/L (23-31); Chloride 90 mmol/L (98-107); Globulin 4.6 g/dL (2.4-3.5); Glucose 168 mg/dL (80-115); Lipase 5 U/L (8-78); Potassium 4.7 mmol/L (3.5-5.1); Protein, Total 7.6 g/dL (5.8-8.1); Sodium 136 mmol/L (136-145)
[2020-10-07 10:28] LABS: D-Dimer Test 4.94 *mcg/mL (0.27-0.43)
[2020-10-07 10:29] LABS: Base Excess-Venous 6.4 mmol/L (-2.0 to 3.0); Bicarbonate (HCO3v) 34.3 mmol/L (22.0-28.0); CO2 Tension (PvCO2) 66.3 mmHg (40.0-50.0); Calcium, Ionized 1.29 mmol/L (1.15-1.33); Chloride 94 mmol/L (98-107); Hemoglobin - Calc 11.2 g/dL (12.0-16.0); Potassium 4.7 mmol/L (3.5-5.1); Sodium 134 mmol/L (138-145); T. Carbon Dioxide 36.3 mmol/L (22.0-28.0); vO2 Saturation-calc 58.9 % (60.0-85.0)
[2020-10-07] MEDS ORDERED: VANCOMYCIN 2 GRAM/400 ML BAG 2 GM in Premix Bag 1 BAG IVPB SCH (10:45)
[2020-10-07] MEDS ORDERED: Ondansetron PF 4 MG/2 ML Vial ONE (10:47)
[2020-10-07] MEDS ORDERED: Morphine 4 MG/ML VIAL ONE (10:47)
[2020-10-07] MEDS ORDERED: Cefepime 2 GM VIAL ONE (10:47)
[2020-10-07 10:53] LABS: Band 9 % (5-11); Hypochromia SLIGHT = 6-15 cells (100X) (0-5/hpf); Lymphocytes 1 % (21-51); MDiff Complete? YES; Monocytes 1 % (0-10); Neutrophil 89 % (42-75); Platelet Morphology Comment Appears Increased; Polychromasia SLIGHT = 2-3 cells (100X) (0-2/hpf)
--- NOTE | 2020-10-07 11:04 | RAD ---
RADIOGRAPH CHEST 1 VIEW: Date: 10/07/2020. Time: 10:03 a.m. HISTORY: A 70-year-old female with generalized weakness. COMPARISON: 09/17/2020. FINDINGS: There continues to be total opacification of the left hemithoracic cavity. There is now a greater de gree of shift of the trachea, mediastinum, and heart to the right, with associated decreased volume o f the right lung. Otherwise, the visualized right lung griffin are clear. No pneumothorax. No right -sided pulmonary edema. IMPRESSION: 1. Total opacification of left hemithoracic cavity. 2. Greater mass effect, with displacement of midline structures to the right. JN [] POS: [facility]
[2020-10-07 11:08] LABS: Bilirubin Negative (Negative); Blood, Urine Negative (Negative); Clarity Clear (Clear); Glucose, Urine (Dipstick) Normal (Negative); Ketone, Urine Negative (Negative); Leukocyte Negative Leu/uL (Negative); Nitrite Negative (Negative); Protein, Urine (Dipstick) Negative (Neg-Trace); Specific Gravity, Urine 1.018 (1.002-1.036)
[2020-10-07] MEDS ORDERED: Iopamidol-370 76% 500 ML 1 ML ONE (11:10)
--- NOTE | 2020-10-07 11:10 | RAD ---
RADIOGRAPH RIGHT SHOULDER 2 VIEWS: Date: 10/07/2020 Time: 10:05 a.m. HISTORY: 70-year-old female with right shoulder pain. COMPARISON: 08/02/2020. FINDINGS: Again noted is the displaced, comminuted right humeral head and neck fracture. There is a new finding of widening of the glenohumeral joint space. There is a new finding of some callus involving the hum eral head fracture, but fracture lucencies are still present. IMPRESSION: 1. Subacute, comminuted, and displaced right humeral head and neck fracture, with partial healing ch anges. 2. New finding of subluxation of the glenohumeral joint. This could represent a new joint effusion. POS: [facility]
[2020-10-07 12:20] LABS: SARS-CoV-2 NAA Rapid Test Not Detected (NotDetected)
--- NOTE | 2020-10-07 12:51 | CT ---
Exam: CT angiogram of the chest HISTORY: Fall. Pain. Left hemithoracic tumor. COMPARISON: Chest CT 09/10/2020 TECHNIQUE: CT angiogram of the chest is performed in the axial plane. Three-dimensional reformatted i mages are submitted for interpretation FINDINGS: Mediastinum: No mass, lymphadenopathy or hematoma. HEART: Normal size. No significant pericardial fluid. Aorta: No aneurysm or dissection Upper solid abdominal viscera: No abnormality enhancement. Trachea and central bronchi: Trachea and right central bronchus is patent. There is narrowing of the distal left bronchus. Pleural spaces: Large loculated left-sided pleural effusion. Lung parenchyma: Collapse of the left lung secondary to a heterogeneous mass occupying the left hemit horax. Pneumothorax: None Osseous structures: There are destructive changes involving the left ribs compatible with metastases. Pulmonary arteries: Adequate contrast opacification pulmonary arterial system to the level of segment al arteries. No filling defect to suggest pulmonary embolism IMPRESSION: 1. No evidence of pulmonary artery embolism to the level segmental arteries 2. Worsening opacification left hemithorax suggesting progression of known malignancy. There is compl ete collapse of the left lung. There is a large loculated left pleural effusion.
--- NOTE | 2020-10-07 12:55 | CT ---
EXAM: CT ABDOMEN AND PELVIS HISTORY: Left hemithoracic cancer. Evaluate for pressure ulcer. COMPARISON: 10/12/2019. Procedure: Multiple contiguous axial images were obtained and a CT of the abdomen and pelvis with IV contrast. C oronal reformats were performed. FINDINGS: Lower Chest: Loculated left pleural effusion with evidence of heterogeneous known malignancy occupyin g the left hemithorax. Complete collapse of the left lung. Vessels: Normal caliber aorta. There is atherosclerosis. Heart: Normal heart size. No significant pericardial fluid. Abdomen: Portal vein:Patent. Gallbladder: No calcified gallstones. Normal caliber wall. Liver: within normal limits. Pancreas: Atrophic pancreas. Spleen: Diffuse attenuation of the spleen which may in part be due to arterial phase enhancement. The spleen is pushed anteriorly and slightly towards midline due to the large left pleural effusion. Adrenals: within normal limits. Kidneys: Symmetric enhancement. No obstructive uropathy. Peritoneum: There is a mixed attenuation fatty mass posterior to the right adrenal gland, measuring 3 .6 x 3.1 cm. Bowel: Limited evaluation due to the lack of oral contrast administration. No evidence of bowel obstr uction. Ileocecal junction is unremarkable. Appendix is not appreciated. No secondary signs of appendicitis. Scattered fecal material in a nondistended, nondilated colon. Occasional diverticulum. No evidence of diverticulitis. Mesentery and Retroperitoneum: No enlarged mesenteric or retroperitoneal lymph nodes. Abdominal Wall: Umbilical hernia containing mesenteric fat. Pelvis: Reproductive Organs: Reproductive organs are unremarkable. Pelvis: No mass, lymphadenopathy, free air or free fluid. Bladder: within normal limits. Bones: within normal limits. IMPRESSION: 1. Known malignancy and associated changes in the left hemithorax. 2. No acute abnormality in the abdomen or pelvis. 2. Mixed attenuation fatty mass in the right hemiabdomen. Transcribed Date/Time: 10/07/2020 1:00 PM
[2020-10-07 13:02] LABS: Lactic Acid 2.2 mmol/L (0.5-2.2)
[2020-10-07] MEDS ORDERED: HYDROcodone/Acetaminophen 5/325 mg Tablet PO PRN ×2 (16:07)
[2020-10-07] MEDS ORDERED: HYDROcodone/Acetaminophen 5/325 mg Tablet ONE (16:55)
--- NOTE | 2020-10-07 17:40 | CON ---
DATE OF CONSULTATION: REASON FOR CONSULT: Uterine leiomyosarcoma. HISTORY OF PRESENT ILLNESS: Ms. Crespo is a 70-year-old female, who was diagnosed with uterine leiomyosarcoma in 2019. She underwent hysterectomy and radiation. She presented to this facility in September with a shoulder injury. During that time, she underwent a CT of her chest, which showed a pleural-based mass in the upper left hemothorax measuring 14 x 5 x 9.3 cm. It was causing narrowing of the left upper airway and artery. She underwent needle core biopsy, which showed sarcoma consistent with metastatic leiomyosarcoma. She saw Dr. Quintero. The plan was to undergo palliative chemotherapy with Gemzar and Taxotere. She was actually due to start today. Unfortunately, her was unable to get her up. She was extremely weak and brought to the emergency room instead. Here, she underwent abdomen and pelvis CT which showed no acute findings. She was placed on oxygen, given pain medication. We were asked to see the patient regarding her cancer. The patient was seen at bedside. She is drowsy with her was present. PAST MEDICAL HISTORY: 1. Metastatic leiomyosarcoma diagnosed two weeks ago. 2. History of uterine cancer in 2019. 3. Hypertension. 4. Obesity. PAST SURGICAL HISTORY: Hysterectomy. ALLERGIES: PENICILLIN. HOME MEDICATIONS: 1. Lisinopril with hydrochlorothiazide. 2. Tylenol 3. 3. Simvastatin. FAMILY HISTORY: Brother had pancreatic cancer. Mother had uterine cancer. SOCIAL HISTORY: , lives with her spouse. No alcohol, tobacco, or illicit drug use. REVIEW OF SYSTEMS: 12-point review of systems is negative except for noted in HPI. PHYSICAL EXAMINATION: VITAL SIGNS: Temperature is 97.4, respiratory rate is 18, BP is 105/52. GENERAL: This is a chronically ill-appearing female, in no acute distress. HEENT: She is normocephalic, atraumatic. Pupils are equal and reactive to light. NECK: Supple. CV: Regular rate and rhythm. She is tachycardic. LUNGS: Decreased throughout. ABDOMEN: Obese. Bowel sounds are positive. EXTREMITIES: She has 1+ bilateral lower extremity edema. SKIN: No rash. NEUROLOGICAL: Nonfocal. PERTINENT LABORATORY DATA AND X-RAYS: WBCs are 38.9, hemoglobin 9.5, hematocrit 30.9, platelet count is 568,000, 89% neutrophils, 9% bands, 1% lymphocytes. PT 16.2, INR is 1.3, PTT is 30. Sodium 134, potassium 4.7, chloride 94, CO2 is 31, BUN is 73, creatinine 1.04, lactic acid 2.2, calcium 10.8, bilirubin 1. AST is 22, ALT is 12, alkaline phosphatase is 158. BNP is 191. Serum total protein 7.6, albumin 3, globulin 4.6, lipase 5. COVID PCR negative. Radiology per HPI. ASSESSMENT: 1. 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 2. Weakness and failure to thrive. DISCUSSION: The patient has significant tumor burden in her left hemothorax. She is now oxygen dependent. She was to start chemotherapy today. Both her and her spoke prior to my discussion with her and they agree that she would not tolerate it well. I would agree with that as well. We will add recommend hospice. She is already on [facility] and we will transition her over. I have talked to Mitchell Interiano at [facility]. She will need medical equipment at home, so this will likely not happen until tomorrow. She does want to be a do not resuscitate, the order was put in. I have discussed the case with Dr. Quintero, who agrees with the plan. Thank you for the consult. Job ID: [id number]
--- NOTE | 2020-10-09 02:39 | PQF ---
Dear : Faviola Cummings Date 10/09/2020 Please exercise your independent, professional judgment in responding to the clarification form. Clinical indicators are provided on the bottom of this form for your review Based on your clinical judgment, can you please specify the infectious status of this patient? Please check appropriate box(es): [ x ] Sepsis [ ] No sepsis [ ] Other diagnosis, please specify [ ] Unable to determine In addition can you please further clarify the diagnosis of the patient? [ ] Acute Respiratory Failure with Hypoxia [ x] Acute On Chronic Respiratory Failure with Hypoxia [ ] Chronic Respiratory Failure only with Hypoxia [ ] Hypoxia [ ] Other diagnosis [ ] Unable to determine Physician Signature: Date/Time: For continuity of documentation, please document condition throughout progress notes and discharge summary. Thank You. To be completed by CDI/Coding staff for physician review: Present Clinical Indicators - Signs / Symptoms / Labs Results and Location in Medical Record [ x ] Presenting with shortness of breath ED Provider pg.1 [ x ] Fever, chills, generalized malaise, shortness of breath on exertion ED Provider pg.1 [ x ] VS: BP 92/53, P: 94, RR: 31 T: 98.0 ED Provider pg.2 [ x ] hypoxia ED Provider pg.3 [ x ] tachypnea ED Provider pg.3 [ x ] Sepsis ED Provider pg.4 [ x ] WBC: 38.9H Laboratory 10/07 [ x ] PCO2 66.3H Blood gas [ x ] PO2 34.4H Blood gas [ x ] Lactic acid 2.6H, 2.2 Laboratory [ x ] Blood culture: no growth Laboratory 10/07 Present Risk Factors Results and Location in Medical Record [ x ] Cellulitis ED Provider pg.4 [ x ] obesity Consult pg.1 [ x ] Metastatic leiomyosarcoma Consult pg.1 [ x ] 70 years old female ED Notes 10/07 [ x ] Sacral pressure ulcer stage 2 ED Notes 10/07 Present Treatments Results and Location in Medical Record [ x ] IV Fluids MAR [ x ] Vancomycin 2gm IV MAR [ x ] Cefepime 2gm IV MAR CDS/Field Counsel Signature: BashirRafael ortega Phone #: ext [phone] Date 10/09/2020 This is a permanent part of the Medical Record [facility]
== END 2020-10-07 20:42 | disposition home or self-care (01) | DRG 871 ==
LOC: ERS 09:10 → ERHOLD 14:46
PROVIDERS: ADMIT Internal Medicine; ATTEND Internal Medicine
DX: A41.9 Sepsis, unspecified organism (principal); J96.21 Acute and chronic respiratory failure with hypoxia; C78.02 Secondary malignant neoplasm of left lung; J98.11 Atelectasis; J90 Pleural effusion, not elsewhere classified; L03.312 Cellulitis of back [any part except buttock and flank]; Z20.822 Contact with and (suspected) exposure to COVID-19; E78.5 Hyperlipidemia, unspecified; E78.00 Pure hypercholesterolemia, unspecified; C55 Malignant neoplasm of uterus, part unspecified; I10 Essential (primary) hypertension; L89.152 Pressure ulcer of sacral region, stage 2; E66.9 Obesity, unspecified; Z90.710 Acquired absence of both cervix and uterus; Z88.0 Allergy status to penicillin; Z79.899 Other long term (current) drug therapy; D64.9 Anemia, unspecified
CPT/HCPCS: 0240U; 36415; 36430; 51701; 71045; 71275; 74177; 80053; 81003; 82330; 82550; 82803; 83605; 83690; 83880; 84484; 85025; 85379; 85610; 85730; 86850; 86900; 86901; 87040; 87086; 93005; 94760; 96365; 96375; J0692; J2270; J2405; J3370; P9016; Q0163; Q9967